=== PATIENT | female | born 1935 | race Caucasian/White ===

== ENCOUNTER → 2016-05-28 | Outpatient (CLI) | payer OTHER | LOC: BHSO 09:57 | DX: F41.1 Generalized anxiety disorder (principal) ==

== ENCOUNTER → 2016-08-20 | Outpatient (CLI) | payer OTHER | LOC: BHSO 09:50 | DX: F33.41 Major depressive disorder, recurrent, in partial remission (principal) ==

== ENCOUNTER → 2017-05-20 | Outpatient (CLI) | payer OTHER | LOC: BHSO 14:40 | DX: F41.1 Generalized anxiety disorder (principal) | CPT/HCPCS: G0463 ==

== ENCOUNTER → 2017-06-03 | Outpatient (CLI) | payer OTHER | LOC: MC.RAD 05-11 07:00 | DX: Z12.31 Encounter for screening mammogram for malignant neoplasm of breast (principal) ==

== ENCOUNTER → 2017-08-19 | Outpatient (CLI) | payer OTHER | LOC: BHSO 14:01 | DX: F33.42 Major depressive disorder, recurrent, in full remission (principal) | CPT/HCPCS: G0463 ==

== ENCOUNTER 2017-08-28 20:51 | Emergency (ER) | payer OTHER ==
[~2017-08-28] VITALS: Ht 157.5 cm; Wt 79.5 kg
[2017-08-28 20:55] VITALS: TEMP 99
[2017-08-28] MEDS ORDERED: MULTIPLE VITAMI1 CAP PO (21:13)
[2017-08-28] MEDS ORDERED: LEVOXYL0.025 MG PO (21:13)
[2017-08-28] MEDS ORDERED: LASIX 20MG TABL20 MG PO (21:13)
[2017-08-28] MEDS ORDERED: TENORMIN 2525 MG/TAB PO (21:13)
[2017-08-28] MEDS ORDERED: CYMBALTA 30MG30 MG PO (21:14)
[2017-08-28] MEDS ORDERED: ASPIRIN 32325 MG/TAB PO (21:14)
[2017-08-28] MEDS ORDERED: EPA FISH OIL1 SGL PO (21:16)
[2017-08-28] MEDS ORDERED: LIPITOR20 MG PO (21:17)
[2017-08-28] MEDS ORDERED: CALCIUM 600-D 61 TAB PO (21:17)
[2017-08-28] MEDS ORDERED: PLAVIX 75MG TAB75 MG PO (21:17)
[2017-08-28] MEDS ORDERED: PRINIVIL20 MG PO (21:17)
[2017-08-28] MEDS ORDERED: SINEMET 25/101 UDTAB PO (21:18)
[2017-08-28 22:23] VITALS: BP 176/67; PULSE 60
== END 2017-08-28 22:24 | disposition home or self-care (01) ==
LOC: COL.ER 20:51
DX: S09.90XA Unspecified injury of head, initial encounter (principal); S40.022A Contusion of left upper arm, initial encounter; S80.02XA Contusion of left knee, initial encounter; G20 Parkinson's disease; Z79.02 Long term (current) use of antithrombotics/antiplatelets; Z79.82 Long term (current) use of aspirin; W01.198A Fall on same level from slipping, tripping and stumbling with subsequent striking against other object, initial encounter; Y92.009 Unspecified place in unspecified non-institutional (private) residence as the place of occurrence of the external cause

== ENCOUNTER → 2018-02-17 | Outpatient (CLI) | payer MEDICARE ==
[~2018-02-17] MED LIST: ASPIRIN 32325 MG/TAB PO; CALCIUM 600-D 61 TAB PO; CYMBALTA 30MG30 MG PO; EPA FISH OIL1 SGL PO; LASIX 20MG TABL20 MG PO; LEVOXYL0.025 MG PO; LIPITOR20 MG PO; MULTIPLE VITAMI1 CAP PO; PLAVIX 75MG TAB75 MG PO; PRINIVIL20 MG PO; SINEMET 25/101 UDTAB PO; TENORMIN 2525 MG/TAB PO
== END ==
LOC: BHSO 13:56
DX: F33.42 Major depressive disorder, recurrent, in full remission (principal)
CPT/HCPCS: G0463

== ENCOUNTER → 2018-08-18 | Outpatient (CLI) | payer MEDICARE | LOC: BHSO 14:25 | DX: F33.42 Major depressive disorder, recurrent, in full remission (principal) | CPT/HCPCS: G0463 ==

== ENCOUNTER 2018-12-24 19:26 | Inpatient (IN) | payer MEDICARE ==
[~2018-12-24] VITALS: Ht 157.5 cm; Wt 75.5 kg
[2018-12-24 20:05] LABS: BASO % 0.1 % (0.0-2.0); EOS % 0.1 % (0-4.0); GRAN # 12.8 (1.4-6.5); GRAN % 85.5 % (42.2-75.2); HEMATOCRIT 43.5 % (37.0-47.0); HEMOGLOBIN 14.8 g/dl (12.5-16.0); MEAN CELL VOLUME 93 fl (80.0-100.0); MEAN CORPUSCULAR HEMOGLOBIN 32 pg (27.0-31.0); MEAN CORPUSCULAR HGB CONC 34 g/dl (33.0-37.0); MEAN PLATELET VOLUME 12.2 fl (7.4-10.4); MONO # 1.1 (0.1-0.6); PLATELET COUNT 183 K/mm3 (130-400); RED BLOOD COUNT 4.67 M/mm3 (4.10-5.30); REDCELL DISTRIBUTION WIDTH-CV 13.3 % (11.5-14.5)
[2018-12-24 20:13] LABS: ALBUMIN 4.4 gm/dL (3.5-5.0); C-REACTIVE PROTEIN 1.8 mg/dL (0.0-0.9); CALCIUM 10.6 mg/dL (8.4-10.2); CREATININE, serum 1.29 (0.52-1.25); POTASSIUM 4.1 mmol/L (3.4-5.0); TOTAL PROTEIN 7.5 gm/dL (6.4-8.2)
[2018-12-24 21:06] LABS: COLLECTION METHOD CATHETER
[2018-12-24 21:16] LABS: MUCOUS Present /lpf; PH 5 (5-8); URINE APPEARANCE Cloudy; URINE BACTERIA None Seen /hpf; URINE BILIRUBIN Negative (NEGATIVE); URINE BLOOD 2+ (NEGATIVE); URINE COLOR Yellow; URINE GLUCOSE Negative (NEGATIVE); URINE KETONE Trace (NEGATIVE); URINE LEUKOCYTE ESTERASE 1+ (NEGATIVE); URINE NITRATE Negative (NEGATIVE); URINE PROTEIN(semi-quant) 2+ (NEGATIVE); URINE UROBILINOGEN Negative (NEGATIVE)
[2018-12-25] VITALS (13 sets, daily range): BP systolic 140–159; BP diastolic 44–63; PULSE 78–92; TEMP 97.7–99.4
--- NOTE | 2018-12-25 03:00 | NUR ---
Report received from PACU. Arrived to room via bed. VS stable. Very drowsy-answering questions appropriately with one word answers. Daughter at bedside. Oriented to room/policy. Assessment complete. Abdominal lap sites x4-edges well approximated no drainage noted-lawrence set/open to air. Plan of care discussed. Oral care provided. NG to right evbr-aqlztdp-zqjtbuxc at 50cm. Placement checked-aspirated scant amount of dark brown liquid-attached to low intermittent suction. Admission assessment started-daughter providing most information due to drowsiness. Call light in reach, bed in low position/wheels locked-will monitor.
--- NOTE | 2018-12-25 12:02 | NUR ---
Patient lives at home with her daughter (Jamilah Fu) and son-in-law in [place], [place] and plans to return home with them upon discharge. Patient is [employer]ism and refuses blood products. Patient uses a walker for mobility assistance, her primary care physician is Dr. Shanta Lawson, her pharmacy is [facility], and she does have advance directives of healthcare completed and is a DNR. No further needs at this time and social servies will follow as needed.
[2018-12-25 12:42] LABS: HEMATOCRIT 37.6 % (37.0-47.0); MEAN CELL VOLUME 95 fl (80.0-100.0); MEAN CORPUSCULAR HEMOGLOBIN 32 pg (27.0-31.0); MEAN CORPUSCULAR HGB CONC 34 g/dl (33.0-37.0); MEAN PLATELET VOLUME 12.1 fl (7.4-10.4); PLATELET COUNT 123 K/mm3 (130-400); RED BLOOD COUNT 3.98 M/mm3 (4.10-5.30); REDCELL DISTRIBUTION WIDTH-CV 13.3 % (11.5-14.5)
[2018-12-25 12:43] LABS: HEMOGLOBIN 12.7 g/dl (12.5-16.0)
[2018-12-25 12:53] LABS: CREATININE, serum 0.96 (0.52-1.25); POTASSIUM 3.9 mmol/L (3.4-5.0)
--- NOTE | 2018-12-25 18:00 | NUR ---
Dr. Arthur saw patient. NG clamped. Patient offered clear liquids slowly. No c/o pain or nausea. NG dc'd in PM. Transferred to chair with staff. Activity tolerated well. IV fluids infusing. Daughter remains at bedside.
--- NOTE | 2018-12-25 20:00 | NUR ---
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 Assessment complete. VS stable. Daughter at bedside. Sitting up in bed-tolerating clear liquids. Denies pain, nausea or shortness of breath. States no flatus but has been belching. Plan of care discussed for this shift. Abdominal lap sites X4-edges well approximated-lawrence set/open to air. No drainage noted. Denies questions or concerns. Encouraged to call for increase in pain or needs. Verbalizes understanding. Call light in reach. Bed in low/wheels locked. Will monitor.
[2018-12-26] VITALS (8 sets, daily range): BP systolic 141–183; BP diastolic 46–60; PULSE 71–92; TEMP 98–99.3
[2018-12-26 06:29] LABS: HEMOGLOBIN 12.2 g/dl (12.5-16.0); MEAN CELL VOLUME 96 fl (80.0-100.0); MEAN CORPUSCULAR HEMOGLOBIN 32 pg (27.0-31.0); MEAN CORPUSCULAR HGB CONC 33 g/dl (33.0-37.0); MEAN PLATELET VOLUME 12.1 fl (7.4-10.4); PLATELET COUNT 114 K/mm3 (130-400); RED BLOOD COUNT 3.82 M/mm3 (4.10-5.30); REDCELL DISTRIBUTION WIDTH-CV 13.5 % (11.5-14.5)
[2018-12-26 06:32] LABS: HEMATOCRIT 36.8 % (37.0-47.0)
[2018-12-26 07:34] LABS: LYMPHOCYTE 8 % (20.0-51.0); NEUTROPHILS 84 % (42.0-75.2); NUCLEATED RED BLOOD CELL 1 (0-6); PLATELET ESTIMATE DECREASED (NORMAL)
[2018-12-26 07:35] LABS: HYPOCHROMIA 2+
--- NOTE | 2018-12-26 10:49 | NUR ---
SW spoke to patient's daughter and requested a copy of the DPOA paperwork. Pt's daughter reports she will bring the paperwork. SW will continue to follow.
--- NOTE | 2018-12-26 11:40 | NUR ---
Patient has been up twice this am to the commode. She did not have a bowel movement or pass flatus. She had 800ml of dark green emesis. Patient denies pain, stated she just felt nauseated. Encouraged patient to stop eating or drinkn for now. Her daughter is at bedside. Dr Arthur aware that patient is vomiting, he is here at this time. He spoke with the patient and daughter. May need to replace the NG tube if continues to have vimiting. No other changes at this time. Call light within reach.
--- NOTE | 2018-12-26 13:51 | NUR ---
PT/OT/ST were ordered for the patient. SW will continue to follow at assist with any discharge recommendations.
--- NOTE | 2018-12-26 18:35 | NUR ---
Patient has been doing better this afternoon with N/V. She has only been taking in ice chips. She sat up in the chair this afternoon. ST stopped by to see patient but since she is NPO she could not do an assessment. She will come back when her diet has been advanced. No other changes at this time. Call light within reach.
--- NOTE | 2018-12-27 01:21 | NUR ---
Patient noted to have difficulty taking her pills tonight. Noted to keep water and pill in her mouth for a long period of time. Patient was able to take both HS medications, but it appeared to be difficult for her. Abdomen distended and bowel sounds very hypoactive. No emesis noted thus far in the shift. Daughter at bedside and comes out to the desk to ask for things. Patient has transferred to the commode, then to the chair. Currently sitting in the chair with feet up. Will continue to monitor patient.
[2018-12-27 04:50] VITALS: BP 166/73; PULSE 103; TEMP 97.9
[2018-12-27 07:07] LABS: HEMATOCRIT 37.1 % (37.0-47.0); HEMOGLOBIN 12.1 g/dl (12.5-16.0); MEAN CELL VOLUME 96 fl (80.0-100.0); MEAN CORPUSCULAR HEMOGLOBIN 31 pg (27.0-31.0); MEAN CORPUSCULAR HGB CONC 33 g/dl (33.0-37.0); MEAN PLATELET VOLUME 12.9 fl (7.4-10.4); PLATELET COUNT 124 K/mm3 (130-400); RED BLOOD COUNT 3.88 M/mm3 (4.10-5.30); REDCELL DISTRIBUTION WIDTH-CV 13.4 % (11.5-14.5)
[2018-12-27 07:08] LABS: CALCIUM 9.3 mg/dL (8.4-10.2); CREATININE, serum 0.99 (0.52-1.25); POTASSIUM 3.6 mmol/L (3.4-5.0)
[2018-12-27 07:57] VITALS: BP 171/61; PULSE 96; TEMP 98.7
[2018-12-27 08:01] LABS: HYPOCHROMIA 1+; LYMPHOCYTE 9 % (20.0-51.0); NEUTROPHILS 77 % (42.0-75.2); PLATELET ESTIMATE DECREASED (NORMAL)
[2018-12-27 12:34] LABS: CALCIUM 9.3 mg/dL (8.4-10.2); CREATININE, serum 0.99 (0.52-1.25); POTASSIUM 3.6 mmol/L (3.4-5.0)
[2018-12-27 12:45] LABS: ALBUMIN 3.1 gm/dL (3.5-5.0); BILIRUBIN,TOTAL 1.1 mg/dL (0.0-1.0); PHOSPHOROUS 3.2 mg/dL (2.5-4.5); TOTAL PROTEIN 5.8 gm/dL (6.4-8.2)
[2018-12-27 12:52] LABS: PRE ALBUMIN 9.5 mg/dL (17.6-36.0)
[2018-12-27 15:16] VITALS: BP 154/61; PULSE 90; TEMP 98.8
--- NOTE | 2018-12-27 18:00 | NUR ---
Patient had an ok day. She seemed more alert today and was able to answer more questions correctly. Patient denies pain. She had one emesis this am. Dr Arthur made aware. Patient has been started on TPN today. Family is aware and understands why it was started. Patient denies nausea this afternoon. No other changes at this time. Call light within reach.
[2018-12-27 18:22] VITALS: BP 178/59; PULSE 98; TEMP 98.2
[2018-12-27 19:51] VITALS: BP 168/54; PULSE 94; TEMP 97.6
--- NOTE | 2018-12-27 20:20 | NUR ---
Pt. laying in bed at this time, daughter at bedside. Pt. is A&OX3, assessment complete. PICC to rt. upper arm patent, IV TPN infusing per orders. Shultz catheter to DD, clear yellow urine noted. Abd. lap sites x4 PHIL, edges well approximated. Pt. denies pain or other needs, call light within reach.
[2018-12-28] VITALS (7 sets, daily range): BP systolic 118–173; BP diastolic 43–72; PULSE 67–92; TEMP 98–99.2
--- NOTE | 2018-12-28 06:06 | NUR ---
Pt. slept off and on through the night. Pt. did get up and ambulate around 0200. Pt. tolerated well. Pt. has still not passed gas. Bowel sounds continue to be hypoactive and abd. is distended. Pt. denies pain or other needs at this time.
[2018-12-28 06:32] LABS: HEMOGLOBIN 11.1 g/dl (12.5-16.0); MEAN CELL VOLUME 97 fl (80.0-100.0); MEAN CORPUSCULAR HEMOGLOBIN 32 pg (27.0-31.0); MEAN CORPUSCULAR HGB CONC 33 g/dl (33.0-37.0); MEAN PLATELET VOLUME 12.5 fl (7.4-10.4); PLATELET COUNT 126 K/mm3 (130-400); REDCELL DISTRIBUTION WIDTH-CV 13.5 % (11.5-14.5)
[2018-12-28 06:39] LABS: CALCIUM 8.8 mg/dL (8.4-10.2); CREATININE, serum 0.78 (0.52-1.25); MAGNESIUM 2.4 mg/dL (1.6-2.3); PHOSPHOROUS 2.7 mg/dL (2.5-4.5); POTASSIUM 3.8 mmol/L (3.4-5.0)
[2018-12-28 06:47] LABS: HEMATOCRIT 33.8 % (37.0-47.0)
[2018-12-28 07:50] LABS: EOSINOPHIL 1 % (0-4); HYPOCHROMIA 1+; LYMPHOCYTE 12 % (20.0-51.0); METAMYELOCYTE 2 % (0-0); NEUTROPHILS 76 % (42.0-75.2); NUCLEATED RED BLOOD CELL 1 (0-6); PLATELET ESTIMATE DECREASED (NORMAL)
--- NOTE | 2018-12-28 08:00 | NUR ---
PATIENT IS ORIENTED BUT DROWSY. VSS. DENIES PAIN OR NAUSEA. ABDOMIN IS DISTENDED WITH VERY HYPO BOWL SOUNDS. PATIENT VOIDING SUFFICENT AMOUNTS. NOT PASSING FLATUS YET. TOLERATING CLEARS-SLOW. TAKES PILLS 1 AT A TIMES AND HOLDS WATER IN MOUTH FOR A COUPLE MINUTES BEFORE SWALLOWING. 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 HOB ELEVATED. TPN INFUSING VIA PUMP INTO RIGHT UPPER ARM PICC. BS STABLE UNDER 200. DNR. HEAD TO TOE ASSESSMENT COMPLETE. DAUGHTER AT BEDSIDE. NO OTHER NEEDS AT THIS TIME. CALL LIGHT IN REACH.
--- NOTE | 2018-12-28 09:10 | NUR ---
reviewed chest x-ray report on synapse. With sterile technique right upper arm PICC dressing change done with insertion site cleansed with ChloraPrep 1, catheter pulled out 2 cm to 1 cm marking on catheter, skin prep, chlorhexidine impregnated disc, and Tegaderm applied. No signs or symptoms of IV complications noted. No concerns voiced. Arm wrapped with Johnie to protect catheter. Patient is more awake today. Patient is answering questions appropriately.
--- NOTE | 2018-12-28 11:03 | NUR ---
A nursing home stay is being recommended for the pt. SW met with the pt and pt's daughter/DPOA-HC and presented the patient choice form and first choice is [facility] and second choice is [facility]. DPOA-HC signed the form. A copy was provided to pt and DPOA-HC; original was placed in the chart. SW to fax referrals. SW will continue to follow to assist with discharge recommendations.
--- NOTE | 2018-12-28 11:38 | NUR ---
PATIENT AMBULATING IN HALLWAYS WITH PT
--- NOTE | 2018-12-28 13:50 | NUR ---
ST AT BEDSIDE TO EVAL AND TREAT
--- NOTE | 2018-12-28 15:30 | NUR ---
shift report received from DASHA Martinez
--- NOTE | 2018-12-28 16:19 | NUR ---
ambulating in guz[place] with physical therapy, moves with slow steady gait,
--- NOTE | 2018-12-28 16:33 | NUR ---
back to room and into bed after ambulating with therapy, denies needs, daughter at bedside assisting patient with care
--- NOTE | 2018-12-28 17:30 | NUR ---
remains resting in bed and visiting with her daughter, took pm po med without difficulty
--- NOTE | 2018-12-28 18:23 | NUR ---
telemetry placed on patient by DEBORA
--- NOTE | 2018-12-28 18:50 | NUR ---
bedside shift report given to DASHA Garcia
--- NOTE | 2018-12-28 20:00 | NUR ---
Patient assisted to BSC with 2 assist and gait belt. Transfers slowly. Voids cloudy amer[place] urine. No flatus or stool. Back to bed with assist. Abdomen distended, bowel sounds rare. Having belching with smell of stool. No nausea. Has right PICC with TPN infusing without problem. Denies pain at this time.
[2018-12-29] VITALS (7 sets, daily range): BP systolic 121–180; BP diastolic 42–72; PULSE 80–100; TEMP 98–99.7
--- NOTE | 2018-12-29 01:06 | NUR ---
PATIENT RESTLESS, PICKING AT THE AIR, TRYING TO GET LEGS OVER THE BEDRAILS. MEDICATED WITH ATIVAN 1MG PO AT THIS TIME, TAKES WITHOUT PROBLEM. IVF INFUSING TO LEFT FOREARM WITHOUT PROBLEM.
--- NOTE | 2018-12-29 01:30 | NUR ---
Patient up to bathroom to void, no stool or flatus. Bowel sounds rechecked with no improvement. No nausea at this time.
--- NOTE | 2018-12-29 04:45 | NUR ---
Elevated [id number], medicated with Hydralazine 10mg IVP at this time.
[2018-12-29 07:22] LABS: HEMOGLOBIN 10.4 g/dl (12.5-16.0); MEAN CELL VOLUME 97 fl (80.0-100.0); MEAN CORPUSCULAR HEMOGLOBIN 32 pg (27.0-31.0); MEAN CORPUSCULAR HGB CONC 33 g/dl (33.0-37.0); MEAN PLATELET VOLUME 12.6 fl (7.4-10.4); PLATELET COUNT 126 K/mm3 (130-400); RED BLOOD COUNT 3.29 M/mm3 (4.10-5.30); REDCELL DISTRIBUTION WIDTH-CV 13.5 % (11.5-14.5)
[2018-12-29 07:24] LABS: CALCIUM 7.8 mg/dL (8.4-10.2); CREATININE, serum 0.51 (0.52-1.25); PHOSPHOROUS 2.6 mg/dL (2.5-4.5); POTASSIUM 3.7 mmol/L (3.4-5.0)
--- NOTE | 2018-12-29 07:25 | NUR ---
SITS AT EDGE OF BED TO TAKE SYNTHROID, DOES WITHOUT PROBLEM.
[2018-12-29 07:26] LABS: HEMATOCRIT 31.9 % (37.0-47.0)
[2018-12-29 08:04] LABS: EOSINOPHIL 1 % (0-4); HYPOCHROMIA 1+; LYMPHOCYTE 18 % (20.0-51.0); MYELOCYTE 6 % (0-0); NEUTROPHILS 69 % (42.0-75.2); NUCLEATED RED BLOOD CELL 1 (0-6); PLATELET ESTIMATE DECREASED (NORMAL)
--- NOTE | 2018-12-29 14:54 | NUR ---
RYAN faxed updates to both [facility]. [facility] is reviewing. THey have not accepted or denied. [facility] has accepted as long as TPN is discontinued before discharge.
--- NOTE | 2018-12-29 19:45 | NUR ---
Pt. sitting up in chair at this time. Pt. is A&OX3, assessment complete. PICC to rt. upper arm patent with TPN infusing per orders. Abd. lap sites well approximated. Pt.'s daughter reports that the pt. has passed gas. Pt. denies pain or other needs at this time. Call light within reach.
[2018-12-30] VITALS (7 sets, daily range): BP systolic 130–179; BP diastolic 62–87; PULSE 87–163; TEMP 97.7–101.8
[2018-12-30 06:55] LABS: HEMOGLOBIN 10.8 g/dl (12.5-16.0); MEAN CELL VOLUME 97 fl (80.0-100.0); MEAN CORPUSCULAR HEMOGLOBIN 32 pg (27.0-31.0); MEAN CORPUSCULAR HGB CONC 32 g/dl (33.0-37.0); MEAN PLATELET VOLUME 12.2 fl (7.4-10.4); PLATELET COUNT 132 K/mm3 (130-400); RED BLOOD COUNT 3.43 M/mm3 (4.10-5.30); REDCELL DISTRIBUTION WIDTH-CV 13.6 % (11.5-14.5)
[2018-12-30 07:00] LABS: HEMATOCRIT 33.3 % (37.0-47.0)
[2018-12-30 07:17] LABS: EOSINOPHIL 3 % (0-4); LYMPHOCYTE 17 % (20.0-51.0); MYELOCYTE 1 % (0-0); NEUTROPHILS 69 % (42.0-75.2); NUCLEATED RED BLOOD CELL 1 (0-6)
[2018-12-30 07:18] LABS: PLATELET ESTIMATE NORMAL (NORMAL)
[2018-12-30 07:21] LABS: ALBUMIN 2.6 gm/dL (3.5-5.0); BILIRUBIN,TOTAL 0.3 mg/dL (0.0-1.0); CALCIUM 7.9 mg/dL (8.4-10.2); CREATININE, serum 0.46 (0.52-1.25); MAGNESIUM 1.8 mg/dL (1.6-2.3); PHOSPHOROUS 3.1 mg/dL (2.5-4.5); POTASSIUM 4.1 mmol/L (3.4-5.0); TOTAL PROTEIN 5.2 gm/dL (6.4-8.2)
--- NOTE | 2018-12-30 07:49 | NUR ---
REPORT FROM HERLINDA LOU.
--- NOTE | 2018-12-30 11:38 | NUR ---
PT UP TO BSC AND HAD SMALL HARD BM. HELPED BACK TO RECLINER.
--- NOTE | 2018-12-30 11:45 | NUR ---
FAMILY PROVIDING MAJORITY OF CARES FOR PT.
--- NOTE | 2018-12-30 15:21 | NUR ---
PT UP TO BS SM BOWEL MOVEMENT AND VOIDED. THEN OUT TO [place] WITH THERPAY.
--- NOTE | 2018-12-30 16:28 | NUR ---
CAPS CHANGED ON PICC LINE WITH NEW TPN.
--- NOTE | 2018-12-30 19:17 | NUR ---
REPORT TO MONI RN.
--- NOTE | 2018-12-30 20:30 | NUR ---
Patient uses BSC then takes short walk in the hallway with daughter and staff. Gait slow and steady. Denies pain.
[2018-12-31 00:45] VITALS: BP 164/55; PULSE 92; TEMP 97.9
--- NOTE | 2018-12-31 01:30 | NUR ---
Patient trying to get up on own to use the BSC. Assisted to commode with gait belt and walker. Voids yellow urine, no stool at this time. Back to bed with minimal assist.
--- NOTE | 2018-12-31 04:00 | NUR ---
Patient trying to get up on own, had legs over bedrail. Assisted to BSC with one assist and walker with gait belt on. Voids yellow urine, back to bed, bed alarm set.
[2018-12-31 05:18] VITALS: BP 174/72; PULSE 89; TEMP 98.9
--- NOTE | 2018-12-31 06:00 | NUR ---
Up to BSC with assist. Transfers slowly. Takes AM med without problem.
[2018-12-31 06:10] LABS: MEAN CELL VOLUME 96 fl (80.0-100.0); MEAN CORPUSCULAR HEMOGLOBIN 31 pg (27.0-31.0); MEAN CORPUSCULAR HGB CONC 33 g/dl (33.0-37.0); MEAN PLATELET VOLUME 11.6 fl (7.4-10.4); PLATELET COUNT 133 K/mm3 (130-400); REDCELL DISTRIBUTION WIDTH-CV 13.4 % (11.5-14.5)
[2018-12-31 06:11] LABS: HEMATOCRIT 33.5 % (37.0-47.0)
[2018-12-31 06:24] LABS: CALCIUM 8.3 mg/dL (8.4-10.2); CREATININE, serum 0.42 (0.52-1.25); MAGNESIUM 1.8 mg/dL (1.6-2.3); PHOSPHOROUS 3.4 mg/dL (2.5-4.5); POTASSIUM 4.1 mmol/L (3.4-5.0)
[2018-12-31 07:18] LABS: EOSINOPHIL 3 % (0-4); LYMPHOCYTE 14 % (20.0-51.0); METAMYELOCYTE 1 % (0-0); MYELOCYTE 6 % (0-0); NEUTROPHILS 70 % (42.0-75.2); PLATELET ESTIMATE NORMAL (NORMAL)
[2018-12-31 07:19] LABS: HYPOCHROMIA 1+
[2018-12-31 08:23] VITALS: BP 175/69; PULSE 94; TEMP 98.5
[2018-12-31 12:34] VITALS: BP 150/54; PULSE 89; TEMP 98.3
--- NOTE | 2018-12-31 14:05 | NUR ---
SW faxed update to [facility]. SW will continue to follow.
[2018-12-31 16:44] VITALS: BP 163/62; PULSE 91; TEMP 98.6
--- NOTE | 2018-12-31 18:45 | NUR ---
Patient has done well throughout the day, daughter at bedside. TPN discontinued at 1400 per orders. Tolerating mechanical soft diet without difficulty. Has been up multiple times to restroom with 1 assist and walker. Lap sites x 4 with edges well approximated. Contacted Dr. Butcher to verify fluid orders, discontinued, patient tolerating fluids without difficulty. Patient up and ambulating in the halls <50 ft with walker and 1 assist, steady gait but moves slowly and requires encouragement to ambulate and move feet. Denies further needs at this time. Reported off to second shift supervisor.
[2018-12-31 19:33] VITALS: BP 151/52; PULSE 84; TEMP 98.6
--- NOTE | 2018-12-31 21:20 | NUR ---
PATIENT UP IN CHAIR, TRANSFERS TO BSC THEN AMBULATES IN HALLWAY TO NURSES STATION AND BACK TO BED. GAIT SLOW AND STEADY. IS ALERT AND ORIENTED. TAKING ORAL FOOD AND FLUIDS. PICC TO RIGHT ARM CAPPED.
--- NOTE | 2018-12-31 23:30 | NUR ---
PATIENT AMBULATES OUT DOOR AND BACK TO BED. HAS ALOT OF BELCHING, NO FLATUS. BOWEL SOUNDS HYPOACTIVE. NO NAUSEA OR VOMITING.
[2019-01-01 00:01] VITALS: BP 122/62; PULSE 94; TEMP 98.3
--- NOTE | 2019-01-01 03:30 | NUR ---
Up to BSC with assist, voids and back to bed. No BM at this time.
[2019-01-01 03:40] VITALS: BP 165/68; PULSE 92; TEMP 98.7
[2019-01-01 06:37] LABS: CALCIUM 8.2 mg/dL (8.4-10.2); CREATININE, serum 0.54 (0.52-1.25); POTASSIUM 3.9 mmol/L (3.4-5.0)
[2019-01-01 08:37] VITALS: BP 148/51; PULSE 79; TEMP 98.4
--- NOTE | 2019-01-01 09:22 | NUR ---
PATIENT IN BED SLEEPING ON LEFT SIDE. SOME REDNESS AND SWELLING NOTED TO 2 LAP SITES. OTHER 2 LAP SITES CLEAN DRY AND INTACT. TOOK AM MEDS WITH SIPS OF WATER. SWALLOWING WELL. AMBULATED IN [place] WITH PT. NO FURTHER NEEDS AT THIS TIME. WILL CONTINUE TO MONITOR.
[2019-01-01 12:07] VITALS: BP 149/54; PULSE 80; TEMP 98.6
[2019-01-01 17:27] LABS: 12 HR URINE TOTAL VOLUME 1.08 L
[2019-01-01 18:02] VITALS: BP 142/55; PULSE 80; TEMP 98.4
--- NOTE | 2019-01-01 18:31 | NUR ---
patient ambulating in guz[place] x 1 standby assist with walker. ambulated roughly 100 feet. returned to chair. no further needs at this time. will continue to monitor.
--- NOTE | 2019-01-01 20:00 | NUR ---
PATIENT ALERT AND WANTING TO GO FOR A SHORT WALK BEFORE BED. PATIENT AMBULATED TO NURSES STATION AND BACK. PATIENT USED COMMODE BEFORE BED AND HAD SMALL BM. PATIENT RESTING UP IN BED WITH SCD'S TO BLE. PATIENT DENIES PAIN OR N/V. ABDOMIN LESS DISTENDED, SOFT AND WITH HYPO BOWL SOUNDS. ABDOMINAL LAP SITES X4 PHIL. PATIENT OFF TPN AND TOLERATING MECH SOFT DIET. PM MEDS GIVEN. VSS. TELE INPLACE. HEAD TO TOE ASSESSMENT COMPLETE. DAUGHTER AT BEDSIDE. DNR STATUS. PATIENT GOING TO BED. LIGHT TURNED DOWN. CALL LIGHT IN REACH. BED ALARM ON.
[2019-01-01 20:40] VITALS: BP 152/55; PULSE 81; TEMP 98.6
[2019-01-02 00:42] VITALS: BP 176/57; PULSE 86; TEMP 99.1
[2019-01-02 03:36] VITALS: BP 155/60; PULSE 76; TEMP 99.5
--- NOTE | 2019-01-02 06:55 | NUR ---
appears to be sleeping, in bed with lights off, eyes closed, resp quiet and easy
[2019-01-02 07:09] LABS: CALCIUM 8.2 mg/dL (8.4-10.2); CREATININE, serum 0.58 (0.52-1.25); MAGNESIUM 1.8 mg/dL (1.6-2.3); POTASSIUM 4.1 mmol/L (3.4-5.0)
[2019-01-02 08:06] VITALS: BP 139/42; PULSE 86; TEMP 97.6
--- NOTE | 2019-01-02 08:15 | NUR ---
appears to be sleeping, resp quiet and easy, daughter also at bedside and appears to sleep
--- NOTE | 2019-01-02 09:20 | NUR ---
daughter assisted patient up to bedside commode to void and then assisted into the chair
--- NOTE | 2019-01-02 09:45 | NUR ---
sitting up in chair and daughter has ordered her breakfast, full assessment completed, see interventions for further info,
--- NOTE | 2019-01-02 11:15 | NUR ---
remains up in chair with daughter at bedside, denies needs
[2019-01-02] MEDS ORDERED: POLYMYXIN B/TRIMETH OD (12:04)
--- NOTE | 2019-01-02 12:18 | NUR ---
ambulating out in guz[place] with physical therapy
[2019-01-02 12:37] VITALS: BP 137/49; PULSE 74; TEMP 98.9
--- NOTE | 2019-01-02 13:30 | NUR ---
up and assisted into bathroom and into shower
--- NOTE | 2019-01-02 14:02 | NUR ---
out of shower and sitting up in chair, daughter remains at bedside and assists with her care
--- NOTE | 2019-01-02 14:05 | NUR ---
The pt is to be discharged today, 01/02 to [facility]. SW awaiting transport time. SW presented IM form to the pt; pt understood and signed the form. A copy was provided to the pt; original was placed in the chart. SW to fax discharge orders to [facility]. SW will continue to follow.
--- NOTE | 2019-01-02 14:30 | NUR ---
AIV services in and PICC discontinued
[2019-01-02 15:20] VITALS: BP 137/49; PULSE 74; TEMP 98.9
--- NOTE | 2019-01-02 16:08 | NUR ---
remains resting up in chair waiting for transfer to [facility]
--- NOTE | 2019-01-02 16:35 | NUR ---
discharged per to via [facility]
--- NOTE | 2019-01-02 16:46 | NUR ---
report called to Latasha Encarnacion [facility]
== END 2019-01-02 16:35 | DRG 330 ==
LOC: COL.ER 19:26 → SURG 21:53
PROVIDERS: Emergency Medicine; Family Medicine; Hospitalist; Nurse Practitioner Family; Physician Assistant; ADMIT Surgery
PROC: 0YQ54ZZ Repair Right Inguinal Region, Percutaneous Endoscopic Approach (ICD-10-PCS; principal; 2018-12-25)
PROC: 0DB84ZZ Excision of Small Intestine, Percutaneous Endoscopic Approach (ICD-10-PCS; 2018-12-25)
PROC: 8E0W4CZ Robotic Assisted Procedure of Trunk Region, Percutaneous Endoscopic Approach (ICD-10-PCS; 2018-12-25)
DX: K40.30 Unilateral inguinal hernia, with obstruction, without gangrene, not specified as recurrent (principal); N17.9 Acute kidney failure, unspecified; K56.7 Ileus, unspecified; E44.0 Moderate protein-calorie malnutrition; J90 Pleural effusion, not elsewhere classified; J98.11 Atelectasis; Z66 Do not resuscitate; G20 Parkinson's disease; Z86.73 Personal history of transient ischemic attack (TIA), and cerebral infarction without residual deficits; I10 Essential (primary) hypertension; Z91.048 Other nonmedicinal substance allergy status; R53.81 Other malaise; E87.6 Hypokalemia; E03.9 Hypothyroidism, unspecified; H10.9 Unspecified conjunctivitis
CPT/HCPCS: 99223; 99231-AI; 99232-AI; A4217; A4314; A9284; C1751; C1892; C9113; J0330; J0360; J0610; J0690; J1644; J2370; J2405; J3010; J3475; J3480; J7030; J7050; J7120; J7131; Q9967

== ENCOUNTER 2019-01-20 01:07 | Inpatient (IN) | payer MEDICARE ==
[~2019-01-20] VITALS: Ht 157.5 cm; Wt 71.7 kg
[~2019-01-20 01:07] MED LIST changes: +POLYMYXIN B/TRIMETH OD
[2019-01-20 01:39] LABS: BASO % 0.4 % (0.0-2.0); EOS # 0.1 (0.0-0.7); EOS % 1.6 % (0-4.0); GRAN # 6.7 (1.4-6.5); GRAN % 81.3 % (42.2-75.2); HEMOGLOBIN 11.6 g/dl (12.5-16.0); LYMPH # 0.8 (1.2-3.4); LYMPH % 9.8 % (20.0-51.0); MEAN CELL VOLUME 94 fl (80.0-100.0); MEAN CORPUSCULAR HEMOGLOBIN 31 pg (27.0-31.0); MEAN CORPUSCULAR HGB CONC 33 g/dl (33.0-37.0); MEAN PLATELET VOLUME 10.7 fl (7.4-10.4); MONO # 0.6 (0.1-0.6); MONO % 6.7 % (1.7-9.3); PLATELET COUNT 213 K/mm3 (130-400); RED BLOOD COUNT 3.79 M/mm3 (4.10-5.30); REDCELL DISTRIBUTION WIDTH-CV 13.3 % (11.5-14.5)
[2019-01-20 01:40] LABS: HEMATOCRIT 35.7 % (37.0-47.0)
[2019-01-20 01:51] LABS: ALBUMIN 4.2 gm/dL (3.5-5.0); BILIRUBIN,TOTAL 0.7 mg/dL (0.0-1.0); C-REACTIVE PROTEIN 0.7 mg/dL (0.0-0.9); CREATININE, serum 0.92 (0.52-1.25); TOTAL PROTEIN 7.4 gm/dL (6.4-8.2)
[2019-01-20 02:25] LABS: COLLECTION METHOD CATHETER
[2019-01-20 02:33] LABS: HYALINE CAST >12 /lpf; MUCOUS Present /lpf; PH 5 (5-8); SQUAMOUS EPITHELIAL 0-2 /hpf; URINE APPEARANCE Hazy; URINE BACTERIA Rare /hpf; URINE BILIRUBIN Negative (NEGATIVE); URINE BLOOD Negative (NEGATIVE); URINE COLOR Yellow; URINE GLUCOSE Negative (NEGATIVE); URINE KETONE Trace (NEGATIVE); URINE LEUKOCYTE ESTERASE Negative (NEGATIVE); URINE NITRATE Negative (NEGATIVE); URINE PROTEIN(semi-quant) Negative (NEGATIVE); URINE RBC 0-2 /hpf
--- NOTE | 2019-01-20 06:10 | NUR ---
Admitted to room 346 via stretcher. NG to right nare at 55cm to low intermittent suction with undigested food for return. Denies nausea and pain. NS@150mls/hr to left AC 20g. Infusing without difficulty. Daughter at bedside. Report from ER, RN had XXL bowel movement prior to arriving. Plan of care discussed with daughter. Call light in reach. Bed in low. Wheels locked. Initial assessment complete by COLLECTION SYSTEMS FOREMAN.
[2019-01-20 06:32] VITALS: BP 165/55; PULSE 95; TEMP 98.1
[2019-01-20 07:36] VITALS: BP 159/47; PULSE 95; TEMP 97.6
--- NOTE | 2019-01-20 07:45 | NUR ---
Patient resting in bed. Family at bedside. Vital signs stable, no complaints of nasuea or vomiting. Patient has bowel sounds all quadrants, no distention or tenderness noted.
[2019-01-20 09:20] LABS: BASO % 0.3 % (0.0-2.0); EOS # 0.1 (0.0-0.7); GRAN # 4.4 (1.4-6.5); GRAN % 74.7 % (42.2-75.2); HEMATOCRIT 31.9 % (37.0-47.0); HEMOGLOBIN 10.4 g/dl (12.5-16.0); LYMPH # 0.7 (1.2-3.4); LYMPH % 12.5 % (20.0-51.0); MEAN CELL VOLUME 96 fl (80.0-100.0); MEAN CORPUSCULAR HEMOGLOBIN 31 pg (27.0-31.0); MEAN CORPUSCULAR HGB CONC 33 g/dl (33.0-37.0); MEAN PLATELET VOLUME 10.4 fl (7.4-10.4); MONO # 0.6 (0.1-0.6); MONO % 10.2 % (1.7-9.3); PLATELET COUNT 175 K/mm3 (130-400); RED BLOOD COUNT 3.34 M/mm3 (4.10-5.30); REDCELL DISTRIBUTION WIDTH-CV 13.3 % (11.5-14.5)
[2019-01-20 09:34] LABS: ALBUMIN 3.4 gm/dL (3.5-5.0); BILIRUBIN,TOTAL 0.6 mg/dL (0.0-1.0); CALCIUM 8.5 mg/dL (8.4-10.2); CREATININE, serum 0.68 (0.52-1.25); POTASSIUM 3.9 mmol/L (3.4-5.0); TOTAL PROTEIN 6.1 gm/dL (6.4-8.2)
--- NOTE | 2019-01-20 10:44 | NUR ---
RYAN met with the patient and the patient's daughter, Jamilah De La Torre (#[phone]), to discuss discharge plan and to complete the Re-Admission Interview. The patient recently discharged from the hospital, 01/02, and went to [facility] for a skilled stay. The patient discharged from [facility] this Wednesday, 01/18, and returned home with her daughter (Jamilah) and son-in-law (Heriberto). The patient had been set up with [facility], but they had not yet seen the patient. The patient's daughter reports that the patient seen her PCP twice since re-admission and that the patient does take her medications as prescribed. The patient had a small bowel obstruction and returned to the ED. The patient lives in [place] with her daughter (Jamilah) and son-in-law (Heriberto). Jamilah reporst that the patient needs assistance with bathing and that she helps the patient with this. The patient has a walker, rolaider, and transport chair. The patient's PCP is Dr. Shanta Lawson and she receives her medications at the [facility]. Jamilah reports no difficulties obtaining her meds. The patient's advanced directives are in EMR. The patient's DPOA-HC is her daughter, Jamilah, and the alternate is her son-in-law, Heriberto. At this time, Jamilah reports that the plan is for the patient to return back home with them and either resume [facility] or consider outpatient therapy instead. Jamilah was interested in a list of the different outpatient therapy clinics in [place]. RYAN to provide list to the patient's daughter. RYAN also contacted and confirmed home health services from Arnulfo at [facility]. RYAN to fax updates to [facility] and will continue to follow.
[2019-01-20 11:54] VITALS: BP 149/56; PULSE 93; TEMP 98.1
--- NOTE | 2019-01-20 15:30 | NUR ---
Order recievecd to discontinue patients NG tube. Patient tolerated the removal well. No questions from patient or family at this time.
--- NOTE | 2019-01-20 15:33 | NUR ---
The patient is to tentatively discharge tomorrow, 01/21. RYAN followed up with the patient and patient's daughter to discuss resuming home health vs outpatient therapy. The patient's daughter reports that they have decided they would like to resume home health through [facility] upon discharge. RYAN contacted and updated [facility] at [facility] of the patient tentatively discharging tomorrow. Arnulfo reports that they can accept the patient back for services. RYAN will need to fax the patient's discharge orders to [facility]. RYAN to continue to follow.
[2019-01-20 16:15] VITALS: BP 147/45; PULSE 87; TEMP 98.8
--- NOTE | 2019-01-20 17:39 | NUR ---
Patient tolerating clear liquid diet. No complaints of pain or nausea this shift. Patient has been up in the chair and up to bed side commode several times this sift. Patient has had family visitors throughout the shift.
--- NOTE | 2019-01-20 20:00 | NUR ---
Report received, assumed care for lieutenant shift supervisor. Assessment complete. VS stable. A&Ox3-very conversational this evening. Family at bedside. Denies pain/nausea/shortness of breath. Bowel sounds audible in all four quadrants. Tolerating clear liquid diet. Voiding without difficulty. LR@75ML/HR to left AC. Passing gas. Denies questions or concerns. Encouraged to call for needs. Verbalizes understanding. Call light in reach. Bed in low position/wheels locked. Will monitor.
[2019-01-20 20:02] VITALS: BP 152/61; PULSE 85; TEMP 98.5
--- NOTE | 2019-01-20 20:30 | NUR ---
Ambulating in hallway with walker/gait belt/stand by assist.
[2019-01-20 23:57] VITALS: BP 165/56; PULSE 89; TEMP 98.4
[2019-01-21 04:36] VITALS: BP 174/61; PULSE 90; TEMP 97.6
[2019-01-21 05:00] VITALS: BP 148/66
[2019-01-21 08:01] VITALS: BP 179/72; PULSE 78; TEMP 98.7
--- NOTE | 2019-01-21 09:30 | NUR ---
Patient alert and oriented, answers questions appropriately. See assessment. Abdomen soft, non tender, non distended. Bowel sounds active x4. +Flatus. +Bowel movement. No c/o nausea, pain or discomfort.
[2019-01-21 11:32] VITALS: BP 167/50; PULSE 73; TEMP 98.7
--- NOTE | 2019-01-21 12:43 | NUR ---
Discharge instructions reviewed with patient family, verbalized understanding. Discharged via wheelchair to auto/home with family at 1240.
== END 2019-01-21 12:40 | disposition home health service (06) | DRG 390 ==
LOC: COL.ER 01:07 → SURG 03:59
PROVIDERS: Emergency Medicine; ADMIT Surgery
DX: K56.600 Partial intestinal obstruction, unspecified as to cause (principal); I10 Essential (primary) hypertension; E78.5 Hyperlipidemia, unspecified; G20 Parkinson's disease; Z66 Do not resuscitate; E03.9 Hypothyroidism, unspecified; Z86.73 Personal history of transient ischemic attack (TIA), and cerebral infarction without residual deficits; Z79.890 Hormone replacement therapy; Z79.82 Long term (current) use of aspirin; Z79.02 Long term (current) use of antithrombotics/antiplatelets; Z98.890 Other specified postprocedural states
CPT/HCPCS: A9284; J2405; J7030; J7120; Q9967

== ENCOUNTER → 2019-01-24 | Outpatient (CLI) | payer MEDICARE | LOC: BHSO 09:44 | DX: F42.8 Other obsessive-compulsive disorder (principal) | CPT/HCPCS: G0463 ==

== ENCOUNTER → 2019-02-06 | Outpatient (CLI) | payer MEDICARE | LOC: MC.RAD 14:45 | DX: Z12.31 Encounter for screening mammogram for malignant neoplasm of breast (principal) ==

== ENCOUNTER → 2019-02-22 | Outpatient (CLI) | payer MEDICARE, OTHER | LOC: BHSO 14:15 | DX: F41.1 Generalized anxiety disorder (principal) | CPT/HCPCS: G0463 ==

== ENCOUNTER → 2019-03-23 | Outpatient (CLI) | payer MEDICARE | LOC: BHSO 14:44 | DX: F41.1 Generalized anxiety disorder (principal) | CPT/HCPCS: G0463 ==

== ENCOUNTER 2019-03-28 14:15 | Outpatient (RCR) | payer MEDICARE | END 2019-04-26 | disposition home or self-care (01) | LOC: MKS.ESL.PT | DX: R53.1 Weakness (principal); R26.89 Other abnormalities of gait and mobility ==

== ENCOUNTER 2019-07-17 14:00 | Outpatient (RCR) | payer MEDICARE | END 2019-09-04 | disposition home or self-care (01) | LOC: MKS.ESL.PT | DX: G20 Parkinson's disease (principal) ==

== ENCOUNTER → 2019-11-20 | Outpatient (CLI) | payer MEDICARE | LOC: BHSO 12:54 | DX: F41.1 Generalized anxiety disorder (principal) | CPT/HCPCS: G0463 ==

== ENCOUNTER 2020-02-17 08:24 | Emergency (ER) | payer MEDICARE ==
[~2020-02-17] VITALS: Ht 157.5 cm; Wt 65.0 kg
[2020-02-17 08:37] VITALS: TEMP 97.8
[2020-02-17 09:32] LABS: BASO % 0.2 % (0.0-2.0); EOS # 0.1 (0.0-0.7); EOS % 0.6 % (0-4.0); GRAN # 7.1 (1.4-6.5); GRAN % 84.9 % (42.2-75.2); HEMOGLOBIN 11.9 g/dl (12.5-16.0); LYMPH # 0.7 (1.2-3.4); LYMPH % 7.9 % (20.0-51.0); MEAN CELL VOLUME 96 fl (80.0-100.0); MEAN CORPUSCULAR HEMOGLOBIN 31 pg (27.0-31.0); MEAN CORPUSCULAR HGB CONC 33 g/dl (33.0-37.0); MEAN PLATELET VOLUME 10.6 fl (7.4-10.4); MONO # 0.5 (0.1-0.6); PLATELET COUNT 134 K/mm3 (130-400); REDCELL DISTRIBUTION WIDTH-CV 13.1 % (11.5-14.5)
[2020-02-17 09:34] LABS: HEMATOCRIT 36.3 % (37.0-47.0)
[2020-02-17 09:45] LABS: ALBUMIN 4.5 gm/dL (3.5-5.0); BILIRUBIN,TOTAL 0.6 mg/dL (0.0-1.0); CALCIUM 8.9 mg/dL (8.4-10.2); CREATININE, serum 0.59 (0.52-1.25); POTASSIUM 3.8 mmol/L (3.4-5.0); TOTAL PROTEIN 7.6 gm/dL (6.4-8.2)
[2020-02-17 10:34] VITALS: BP 209/100; PULSE 79
== END 2020-02-17 10:57 | disposition home or self-care (01) ==
LOC: COL.ER 08:24
PROVIDERS: Family Medicine
DX: S40.012A Contusion of left shoulder, initial encounter (principal); G20 Parkinson's disease; R40.2410 Glasgow coma scale score 13-15, unspecified time; Z79.82 Long term (current) use of aspirin; Z79.02 Long term (current) use of antithrombotics/antiplatelets; W01.0XXA Fall on same level from slipping, tripping and stumbling without subsequent striking against object, initial encounter; Y92.009 Unspecified place in unspecified non-institutional (private) residence as the place of occurrence of the external cause

== ENCOUNTER 2020-04-02 14:51 | Outpatient (RCR) | payer MEDICARE | END 2020-04-02 14:52 | LOC: MKS.ESL.PT 14:51 | DX: G20 Parkinson's disease (principal) ==

== ENCOUNTER 2020-04-19 14:45 | Outpatient (RCR) | payer MEDICARE | END 2020-05-20 | disposition home or self-care (01) | LOC: MKS.ESL.PT | DX: G20 Parkinson's disease (principal); M25.512 Pain in left shoulder; W19.XXXA Unspecified fall, initial encounter ==

== ENCOUNTER 2020-08-21 17:29 | Emergency (ER) | payer MEDICARE ==
[~2020-08-21] VITALS: Ht 157.5 cm; Wt 61.8 kg
[2020-08-21 18:53] LABS: BASO % 0.2 % (0.0-2.0); EOS # 0.1 (0.0-0.7); EOS % 1.7 % (0-4.0); GRAN # 4.5 (1.4-6.5); GRAN % 77.1 % (42.2-75.2); HEMOGLOBIN 11.5 g/dl (12.5-16.0); LYMPH # 0.7 (1.2-3.4); LYMPH % 12.2 % (20.0-51.0); MEAN CELL VOLUME 95 fl (80.0-100.0); MEAN CORPUSCULAR HEMOGLOBIN 31 pg (27.0-31.0); MEAN CORPUSCULAR HGB CONC 32 g/dl (33.0-37.0); MEAN PLATELET VOLUME 10.3 fl (7.4-10.4); MONO # 0.5 (0.1-0.6); MONO % 8.5 % (1.7-9.3); PLATELET COUNT 168 K/mm3 (130-400); RED BLOOD COUNT 3.75 M/mm3 (4.10-5.30)
[2020-08-21 18:56] LABS: HEMATOCRIT 35.7 % (37.0-47.0)
[2020-08-21 19:01] LABS: ALBUMIN 3.5 gm/dL (3.5-5.0); BILIRUBIN,TOTAL 0.1 mg/dL (0.0-1.0); CALCIUM 8.8 mg/dL (8.4-10.2); CREATININE, serum 0.66 (0.52-1.25); POTASSIUM 4.2 mmol/L (3.4-5.0); TOTAL PROTEIN 6.6 gm/dL (6.4-8.2)
[2020-08-21 20:05] VITALS: BP 167/77; PULSE 58; TEMP 98
== END 2020-08-21 20:05 | disposition home or self-care (01) ==
LOC: COL.ER 17:29
PROVIDERS: Family Medicine
DX: S09.90XA Unspecified injury of head, initial encounter (principal); I35.0 Nonrheumatic aortic (valve) stenosis; G20 Parkinson's disease; F02.80 Dementia in other diseases classified elsewhere, unspecified severity, without behavioral disturbance, psychotic disturbance, mood disturbance, and anxiety; Z79.83 Long term (current) use of bisphosphonates; Z79.02 Long term (current) use of antithrombotics/antiplatelets; W01.10XA Fall on same level from slipping, tripping and stumbling with subsequent striking against unspecified object, initial encounter

== ENCOUNTER 2020-08-29 06:36 | Day surgery (SDC) | payer MEDICARE ==
[2020-08-29] VITALS (10 sets, daily range): BP systolic 125–202; BP diastolic 50–84; PULSE 51–76; TEMP 98.1
[~2020-08-29] VITALS: Ht 157.6 cm; Wt 61.0 kg
[2020-08-29 07:47] LABS: HEMOGLOBIN 11.5 g/dl (12.5-16.0); MEAN CELL VOLUME 93 fl (80.0-100.0); MEAN CORPUSCULAR HEMOGLOBIN 31 pg (27.0-31.0); MEAN CORPUSCULAR HGB CONC 33 g/dl (33.0-37.0); MEAN PLATELET VOLUME 10.4 fl (7.4-10.4); PLATELET COUNT 149 K/mm3 (130-400); RED BLOOD COUNT 3.75 M/mm3 (4.10-5.30); REDCELL DISTRIBUTION WIDTH-CV 13.2 % (11.5-14.5)
[2020-08-29 07:48] LABS: HEMATOCRIT 34.8 % (37.0-47.0)
[2020-08-29] MEDS ORDERED: ZOLOFT 100MG100 MG PO (07:52)
[2020-08-29 07:56] LABS: CALCIUM 9.1 mg/dL (8.4-10.2); CREATININE, serum 0.62 (0.52-1.25); POTASSIUM 4.1 mmol/L (3.4-5.0)
[2020-08-29 08:08] LABS: INR 1.1 (0.8-3.0); PROTHROMBIN TIME 12.2 SECONDS (9.7-12.8)
[2020-08-29 08:11] LABS: PARTIAL THROMBOPLASTIN TIME 29.1 SECONDS (26.0-37.0)
--- NOTE | 2020-08-29 09:17 | NUR ---
SEE MERGE DOCUMENTATION FOR MEDICATION ADMINISTRATION AND INTRA/POST PROCEDURE SEDATION ASSESSMENTS.
--- NOTE | 2020-08-29 10:15 | NUR ---
PT RETURNED TO EU 14 VIA BED FROM MACHINE FEEDER FLOORPERSON, AWAKE, TALKS, ON 02 2L/NC WITH SATS AT 99%, DR LYLE IN ROOM EARLIER TO TALK WITH DAUGHTER, CALL LIGHT IN REACH. DAUGHTER STATES WILL STAY WITH HER BECAUSE SHE HAS IN THE PAST TRIED TO LEAVE BED AFTER ANESTHESIA, PT RESTS AT THIS TIME WITH EYES CLOSED, TR BAND INTACT, DOES HAVE SOME BLOOD ON OUTER EDGE OF BAND NO ACTIVE BLEEDING
--- NOTE | 2020-08-29 11:15 | NUR ---
AREA AROUND BAND CLEANED WITH QTIP, SITE REMAINS THE SAME, PT SAT ON SIDE OF BED, INCON'T OF URINE, WALKED TO B/R WITH ASSIST AND NEW GOWN AND PAD ON, PT BACK TO BED, NO CHANGES
--- NOTE | 2020-08-29 12:00 | NUR ---
PT SITS UP IN BED, MECHANICAL SOFT DIET FED TO PT BY DAUGHTER, PT IS AWAKE AND ALERT TO SURROUNDINGS. REVIEWED DISCHARGE INST. WITH DAUGHTER, REVIEWED FOLLOWUP CARE, CARE OF SITE, PRECATIONS AND NO CHANGES IN MED LIST WITH VERBAL UNDERSTANDING.
--- NOTE | 2020-08-29 12:30 | NUR ---
TR BAND AIR RELEASED 2CC AT FIRST THEN REPEATED 2CC IN 10 AND 20 MIN WITH NO BLEEDING, BANDAID OVER SITE WTIH COBAN, IV D'CD INTACT.
--- NOTE | 2020-08-29 13:15 | NUR ---
PT DRESSED WITH ASSIST OF DAUGHTER, SITS UP IN W/C, DISCHARGED VIA W/C TO CAR WITH DAUGHTER AT 1330
== END 2020-08-29 13:30 | disposition home or self-care (01) ==
LOC: COL.CAR 06:36
PROVIDERS: Internal Medicine Cardiovascular Disease
DX: I35.0 Nonrheumatic aortic (valve) stenosis (principal); I10 Essential (primary) hypertension; I63.9 Cerebral infarction, unspecified; I49.3 Ventricular premature depolarization; M19.90 Unspecified osteoarthritis, unspecified site; E03.9 Hypothyroidism, unspecified; G70.9 Myoneural disorder, unspecified; F32.9 Major depressive disorder, single episode, unspecified; Z20.822 Contact with and (suspected) exposure to COVID-19; Z86.73 Personal history of transient ischemic attack (TIA), and cerebral infarction without residual deficits; Z79.82 Long term (current) use of aspirin; Z79.899 Other long term (current) drug therapy; Z79.890 Hormone replacement therapy
CPT/HCPCS: J1644; J2250; J2704; J3010; J7120; Q9967

== ENCOUNTER 2020-12-06 14:00 | Outpatient (RCR) | payer MEDICARE ==
[~2020-12-06 14:00] MED LIST changes: +ZOLOFT 100MG100 MG PO
== END 2020-12-08 | disposition home or self-care (01) ==
LOC: MKS.ESL.PT
DX: G20 Parkinson's disease (principal); R13.10 Dysphagia, unspecified; R26.81 Unsteadiness on feet; Z86.73 Personal history of transient ischemic attack (TIA), and cerebral infarction without residual deficits

== ENCOUNTER 2021-02-27 14:30 | Outpatient (RCR) | payer MEDICARE | END 2021-03-09 | disposition home or self-care (01) | LOC: MKS.ESL.PT | DX: G20 Parkinson's disease (principal) ==

== ENCOUNTER 2021-05-02 15:00 | Outpatient (RCR) | payer MEDICARE | END 2021-05-16 | disposition home or self-care (01) | LOC: MKS.ESL.PT | DX: G20 Parkinson's disease (principal); R26.9 Unspecified abnormalities of gait and mobility ==

== ENCOUNTER 2021-12-08 15:16 | Outpatient (RCR) | payer MEDICARE | END 2021-12-14 | LOC: MKS.ESL.PT | DX: R26.89 Other abnormalities of gait and mobility (principal); R25.9 Unspecified abnormal involuntary movements ==

== ENCOUNTER 2022-01-07 13:45 | Outpatient (RCR) | payer MEDICARE | END 2022-01-14 | disposition home or self-care (01) | LOC: MKS.ESL.PT | DX: R26.89 Other abnormalities of gait and mobility (principal); R25.9 Unspecified abnormal involuntary movements ==

== ENCOUNTER 2022-02-25 15:00 | Outpatient (RCR) | payer MEDICARE | END 2022-03-16 | disposition home or self-care (01) | LOC: MKS.ESL.PT | DX: R26.89 Other abnormalities of gait and mobility (principal); R25.9 Unspecified abnormal involuntary movements; Z86.69 Personal history of other diseases of the nervous system and sense organs ==

== ENCOUNTER 2022-08-04 16:14 | Outpatient (RCR) | payer MEDICARE | END 2022-08-04 16:15 | disposition home or self-care (01) | LOC: MKS.ESL.PT 16:14 | DX: G20 Parkinson's disease (principal); R53.1 Weakness; Z86.73 Personal history of transient ischemic attack (TIA), and cerebral infarction without residual deficits ==